=== PATIENT | female | born 1995 | race Caucasian/White ===

== ENCOUNTER 2016-10-24 14:50 | Emergency (ER) | payer OTHER ==
[2016-10-24 17:58] LABS: HEMOGLOBIN 12.3 gm/dl (12.3-15.3); RED BLOOD COUNT 4.43 M/UL (4.00-5.10); WHITE BLOOD COUNT 11.3 K/UL (4.5-11.0)
[2016-10-24 18:22] LABS: BUN/CREATININE RATIO 16 (0-10)
== END 2016-10-24 21:00 | disposition home or self-care (01) ==
LOC: ER1 14:50 → EDSEX 14:51 → ER1 20:59
PROVIDERS: Physician Assistant Medical
DX: R07.89 Other chest pain (principal); Z87.891 Personal history of nicotine dependence; Z91.040 Latex allergy status
CPT/HCPCS: 36415; 71010; 80053; 81001; 82550; 82553; 83874; 84443; 84484; 84703; 85025; 85379; 93005; 99285; J7050; Q9963